=== PATIENT | female | born 1980 | race Caucasian/White ===

== ENCOUNTER 2017-02-26 11:04 | Day surgery (SDC) | payer OTHER ==
[~2017-02-26] VITALS: Ht 167.6 cm; Wt 81.6 kg
[~2017-02-26 11:04] MED LIST: IMITREX25 MG PO; KEPPRA500 MG PO; KEPPRA750 MG PO; LAMICTAL200 MG PO; NAPROSYN500 MG PO; NICODERM CQ1 EAC1 TD; NORCO 5/3251 TABLET PO; ONFI10 MG PO; PROZAC10 MG PO; PROZAC20 MG PO; PROZAC40 MG PO; VIMPAT50 MG PO
== END 2017-02-26 12:25 | disposition home or self-care (01) ==
LOC: PAIN 11:04 → SDC 11:30 → PAIN 11:30
DX: M47.26 Other spondylosis with radiculopathy, lumbar region (principal); F41.9 Anxiety disorder, unspecified; G89.29 Other chronic pain; M54.42 Lumbago with sciatica, left side; M54.41 Lumbago with sciatica, right side; G40.909 Epilepsy, unspecified, not intractable, without status epilepticus; F31.9 Bipolar disorder, unspecified; F20.9 Schizophrenia, unspecified; M19.90 Unspecified osteoarthritis, unspecified site
CPT/HCPCS: J1030; J2250; J3010; S0020

== ENCOUNTER 2017-03-05 07:32 | Day surgery (SDC) | payer OTHER ==
[~2017-03-05] VITALS: Ht 167.6 cm; Wt 81.6 kg
== END 2017-03-05 09:32 | disposition home or self-care (01) ==
LOC: PAIN 07:32 → SDC 08:15 → PAIN 08:15
DX: M47.26 Other spondylosis with radiculopathy, lumbar region (principal); M54.5 Low back pain; G40.909 Epilepsy, unspecified, not intractable, without status epilepticus; Z88.0 Allergy status to penicillin; F17.210 Nicotine dependence, cigarettes, uncomplicated; Z79.899 Other long term (current) drug therapy; Z79.891 Long term (current) use of opiate analgesic
CPT/HCPCS: J1030; J2250; J3010; S0020

== ENCOUNTER 2017-07-22 08:26 | Day surgery (SDC) | payer OTHER ==
[~2017-07-22] VITALS: Ht 167.6 cm; Wt 76.2 kg
[~2017-07-22 08:26] MED LIST changes: +ABILIFY10 MG PO; +HYDROCODON-ACE1 EAC9 PO
== END 2017-07-22 10:34 | disposition home or self-care (01) ==
LOC: PAIN 08:26 → SDC 09:30 → PAIN 10:34
DX: M47.26 Other spondylosis with radiculopathy, lumbar region (principal); M54.42 Lumbago with sciatica, left side; M54.41 Lumbago with sciatica, right side; G89.29 Other chronic pain; F41.8 Other specified anxiety disorders; G40.909 Epilepsy, unspecified, not intractable, without status epilepticus; E66.3 Overweight; Z68.27 Body mass index [BMI] 27.0-27.9, adult; F17.200 Nicotine dependence, unspecified, uncomplicated; Z79.891 Long term (current) use of opiate analgesic; Z88.0 Allergy status to penicillin
CPT/HCPCS: J1030; J2250; J3010; S0020

== ENCOUNTER 2017-10-06 19:29 | Emergency (ER) | payer OTHER ==
[~2017-10-06] VITALS: Ht 167.6 cm; Wt 72.1 kg
[2017-10-06 22:54] VITALS: BP 115/62
== END 2017-10-06 22:55 | disposition home or self-care (01) ==
LOC: EME → EDBD 19:29 → EME 22:55
PROVIDERS: Emergency Medicine
DX: G40.909 Epilepsy, unspecified, not intractable, without status epilepticus (principal); F17.200 Nicotine dependence, unspecified, uncomplicated; Z88.0 Allergy status to penicillin
CPT/HCPCS: 82948; 99281; 99285

== ENCOUNTER 2017-11-15 13:49 | Emergency (ER) | payer OTHER ==
[~2017-11-15] VITALS: Ht 167.6 cm; Wt 72.7 kg
[2017-11-15] MEDS ORDERED: LIDODERM 5% P1 PATCH TD (15:19)
[2017-11-15] MEDS ORDERED: FLEXERIL10 MG PO (15:19)
[2017-11-15] MEDS ORDERED: MOTRIN800 MG PO (15:19)
[2017-11-15 16:11] VITALS: BP 110/57
== END 2017-11-15 16:14 | disposition home or self-care (01) ==
LOC: EME 13:49
DX: G89.29 Other chronic pain (principal); M54.5 Low back pain; F32.9 Major depressive disorder, single episode, unspecified; F41.9 Anxiety disorder, unspecified; F20.9 Schizophrenia, unspecified; F31.9 Bipolar disorder, unspecified; R56.9 Unspecified convulsions; F17.200 Nicotine dependence, unspecified, uncomplicated; Z88.0 Allergy status to penicillin
CPT/HCPCS: 72100; 99281; 99284; J1885; J3010